=== PATIENT | male | born 1980 | race Caucasian/White ===

== ENCOUNTER 2022-10-01 23:12 | Inpatient (IN) ==
[2022-10-01 23:27] VITALS: BMI 28.2
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
[2022-10-01] MEDS ORDERED: GEODON INJ IM ONE ×2 (23:45→23:47)
[2022-10-01] MEDS ORDERED: NS 1,000 ML IV 1,000 ML IV ONE (23:46)
[2022-10-02] MEDS ORDERED: PHENOBARBITAL SODIUM INJ 65 MG VIAL IM PRN (00:01)
[2022-10-02] MEDS ORDERED: ATIVAN INJ 2 MG VIAL IVP ONE (00:33)
[2022-10-02] MEDS ORDERED: ATIVAN INJ 2 MG VIAL ONE (00:33)
[2022-10-02] MEDS ORDERED: ZOFRAN INJ 4 MG VIAL ONE (00:33)
[2022-10-02] MEDS ORDERED: ZOFRAN INJ 4 MG VIAL IVP ONE (00:33)
[2022-10-02 01:08] LABS: BASOPHILS % (AUTO) 0.3 % (0.2-1.0); HEMATOCRIT 38.1 % (42.0-54.0); HEMOGLOBIN 13.4 g/dL (13.5-18.0); LYMPHOCYTES # (AUTO) 0.9 X10^3/uL (1.3-2.9); LYMPHOCYTES % (AUTO) 6.5 % (21.0-51.0); MEAN CORPUSCULAR HEMOGLOBIN 28.7 pg (27.0-34.0); MEAN CORPUSCULAR HGB CONC 35.1 g/dL (33.0-35.0); MEAN CORPUSCULAR VOLUME 81.8 fL (80.0-100.0); MEAN PLATELET VOLUME 7.4 fL (7.4-11.0); MONOCYTES # (AUTO) 0.9 x10^3/uL (0.3-0.8); MONOCYTES % (AUTO) 6.2 % (0.0-13.0); NEUTROPHILS # (AUTO) 12.3 x10^3/uL (2.2-4.8); PLATELET COUNT 335 X10^3/uL (150.0-450.0); RED BLOOD COUNT 4.66 X10^6/uL (4.7-6.0); RED CELL DISTRIBUTION WIDTH 14.1 % (11.6-16.5); WHITE BLOOD COUNT 14.1 X10^3/uL (3.6-10.0)
[2022-10-02 01:16] LABS: ALANINE AMINOTRANSFERASE 42 Units/L (12-78); ALKALINE PHOSPHATASE 119 Units/L (46-116); ASPARTATE AMINO TRANSFERASE 20 Units/L (15-37); BLOOD UREA NITROGEN 15 mg/dL (7-18); CARBON DIOXIDE 22.1 mmol/L (21-32); CHLORIDE 103 mmol/L (98-107); COR NA(FOR HYPERGLY) 142 mmol/L (136-145); CREATININE 0.82 mg/dL (0.70-1.30); GLUCOSE 149 mg/dL (65-99); LIPASE 49 Units/L (73-393); POTASSIUM 3.2 mmol/L (3.5-5.1); SODIUM 141 mmol/L (136-145); TOTAL PROTEIN 7.3 g/dL (6.4-8.2); eGFR NON BLACK RACES > 60 (>60)
--- NOTE | 2022-10-02 01:55 | CT ---
History: AMS, NAUSEA, VOMITTING TBI 2020.brExam :BRAIN W/O CONTechnique: Thin section axial ct images of the brain were obtained from the foramen magnum to the vertex without contrast. Sagittal and coronal reconstructions were also performed.Comparison: NoneFindings:The ventricles are within normal limits in size. No midline shift, mass effect or extra-axial fluid collections. No evidence of acute hemorrhage or acute macroinfarction.The visualized paranasal sinuses and mastoids are unremarkable. The calvarium is intact.Impression:Normal noncontrast CT of the brain; no acute intracranial pathologyElectronically signed by: Dami Steven (Oct 02, 2022 01:53:50)
--- NOTE | 2022-10-02 02:09 | CT ---
HISTORYAMS, NAUSEA, VOMITTINGSTUDYABDOMEN/PELVIS W/O CONCOMPARISONNoneTECHNIQUEMultiple axial images of the abdomen and pelvis were obtained from the lung bases to the pubic symphysis without the administration of IV contrast. Dose reduction techniques including Automated Exposure Control (AEC) and adjustment of mA and kV were utilized.FINDINGSThe visualized portions of the lung bases are unremarkable . The liver, spleen, pancreas, kidneys, and adrenal glands are unremarkable in their CT appearance. The gallbladder is unremarkable in its CT appearance . No significant mesenteric lymphadenopathy or stranding can be observed. No free fluid or free air is seen within the abdomen. Normal appendix right lower quadrant. No bowel wall thickening or bowel dilatation is present. The colon is unremarkable. Specifically, there is no diverticulosis noted within the sigmoid colon. The urinary bladder is grossly unremarkable. The bony structures are grossly intact. There is streak artifact from sideplate and screw fixation involving the left acetabulum and hemipelvis.IMPRESSIONNo acute abdominal or pelvic pathologyElectronically signed by: Dami Steven (Oct 02, 2022 02:07:48)
[2022-10-02] MEDS ORDERED: COMPAZINE INJ IVP ONE (02:20)
[2022-10-02] MEDS ORDERED: BENADRYL INJ 50 MG VIAL IVP ONE (02:20)
[2022-10-02] MEDS ORDERED: BENADRYL INJ 50 MG VIAL ONE (02:22)
[2022-10-02] MEDS ORDERED: COMPAZINE INJ ONE (02:22)
[2022-10-02] MEDS ORDERED: NS 1,000 ML IV 1,000 ML ONE ×2 (05:00)
[2022-10-02] MEDS ORDERED: NS 1,000 ML IV 1,000 ML IV ONE (05:07)
[2022-10-02] MEDS ORDERED: ATIVAN 20 MG/10 ML VIAL IVP PRN (05:29)
[2022-10-02] MEDS ORDERED: CONSULT PHARMACY - POTASSIUM & MAGNESIUM XX SCH (05:29)
[2022-10-02] MEDS ORDERED: D5 1/2 NS 1,000 ML 1,000 ML IV SCH (05:29)
[2022-10-02] MEDS ORDERED: K-DUR TAB 20 MEQ PO SCH (06:00)
[2022-10-02] MEDS ORDERED: APRESOLINE INJ 20 MG VIAL IVP PRN (07:37)
[2022-10-02] MEDS: ATIVAN INJ 2 MG VIAL IVP PRN (08:00)
--- NOTE | 2022-10-02 08:44 | RAD ---
HISTORYAMS, NAUSEA, VOMITTINGSTUDYCHEST, 1 VIEWCOMPARISONNone availableFINDINGSThe trachea is midline. The cardiac silhouette is mildly enlarged. The lungs are clear without focal infiltrate or effusion. The bony thorax is unremarkable.IMPRESSIONNo acute cardiopulmonary findings. Mildly enlarged cardiac silhouette.Electronically signed by: LUC MONTILLA III (Oct 02, 2022 08:43:40)
[2022-10-02] MEDS ORDERED: KAOPECTATE (NEW FORMULA) PO PRN (08:49)
[2022-10-02] MEDS ORDERED: LIBRIUM PO PRN (09:00)
[2022-10-02] MEDS ORDERED: THIAMINE HCL INJ IM SCH (09:00)
[2022-10-02] MEDS ORDERED: MILK OF MAGNESIA PO PRN (09:00)
[2022-10-02] MEDS ORDERED: MAALOX or MYLANTA PO PRN (09:00)
[2022-10-02] MEDS ORDERED: PHENOBARBITAL TAB 30 MG (32.4MG) PO SCH (09:00)
[2022-10-02] MEDS ORDERED: K-RIDER 10 MEQ/NS 100 ML 10 MEQ/100 ML BAG IV ONE (09:59)
[2022-10-02] MEDS: [UNRECOGNIZED DRUG - OTHER] IV SCH ×8 (10:14→22:16)
[2022-10-02] MEDS: PROTONIX INJ 40 MG VIAL IVP SCH (10:14)
[2022-10-02] MEDS: NS IV SCH ×8 (10:14→22:16)
[2022-10-02] MEDS: MAGNESIUM SULFATE IV SCH ×8 (10:14→22:16)
[2022-10-02] MEDS: ZOFRAN INJ 4 MG VIAL IVP PRN ×2 (10:23→16:00)
[2022-10-02] MEDS: MORPHINE SULFATE INJ 2 MG INJ IVP PRN ×2 (12:23→18:27)
[2022-10-02] MEDS: APRESOLINE INJ 20 MG VIAL IVP PRN ×2 (13:17→17:26)
[2022-10-02] MEDS ORDERED: MAGNESIUM SULFATE 1 GRAM/100 mL PREMIX 1 G/100 ML BAG IV SCH (14:00)
[2022-10-02 14:18] LABS: BILIRUBIN,URINE NEGATIVE (NEGATIVE); BLOOD/HEMOGLOBIN,URINE 2+ (NEGATIVE); GLUCOSE, URINE NEGATIVE (NEGATIVE); KETONES,URINE 1+ (NEGATIVE); LEUKOCYTE ESTERASE ,URINE NEGATIVE (NEGATIVE); NITRITES,URINE NEGATIVE (NEGATIVE); PROTEIN,URINE NEGATIVE (NEGATIVE); UROBILINOGEN,URINE NORMAL (NORMAL)
[2022-10-02 14:27] LABS: APPEARANCE,URINE CLEAR (CLEAR); BACTERIA,URINE NEGATIVE /HPF (NEGATIVE); COLOR,URINE STRAW (YELLOW); SQUAMOUS EPITHELIAL CELL,UR FEW /HPF (NEGATIVE)
[2022-10-02] MEDS ORDERED: NS 250 ML IV 0 ML IV ONE (14:49)
[2022-10-02] MEDS ORDERED: K-DUR TAB 20 MEQ PO ONE ×3 (15:01→19:30)
[2022-10-02] MEDS ORDERED: CATAPRES TAB 0.1 MG PO SCH ×2 (18:00→21:00)
[2022-10-02] MEDS ORDERED: AMBIEN PO SCH (21:00)
--- NOTE | 2022-10-02 22:08 | RAD ---
HISTORYAMS, COUGHSTUDYCHEST, 1 VIEWCOMPARISONChest one view from 10/02/2022.FINDINGSSupport devices: None.Heart/mediastinum: No significant abnormality.Lungs: No significant pulmonary abnormality. No significant pleural effusion. No pneumothorax.Additional findings: None.IMPRESSIONNo acute cardiopulmonary findings .Electronically signed by: Salazar Cheek (Oct 02, 2022 22:06:37)
[2022-10-03] MEDS: APRESOLINE INJ 20 MG VIAL IVP PRN ×3 (00:43→09:44)
[2022-10-03] MEDS: NS IV SCH ×8 (04:50→13:10)
[2022-10-03] MEDS: [UNRECOGNIZED DRUG - OTHER] IV SCH ×8 (04:50→13:10)
[2022-10-03] MEDS: MAGNESIUM SULFATE IV SCH ×8 (04:50→13:10)
[2022-10-03 05:18] LABS: BASOPHILS # (AUTO) 0.1 X10^3/uL (0.0-0.1); BASOPHILS % (AUTO) 0.6 % (0.2-1.0); EOSINOPHILS % (AUTO) 0.2 % (0.9-2.9); HEMATOCRIT 37.5 % (42.0-54.0); LYMPHOCYTES # (AUTO) 2.3 X10^3/uL (1.3-2.9); LYMPHOCYTES % (AUTO) 16.8 % (21.0-51.0); MEAN CORPUSCULAR HEMOGLOBIN 28.5 pg (27.0-34.0); MEAN CORPUSCULAR HGB CONC 34.5 g/dL (33.0-35.0); MEAN CORPUSCULAR VOLUME 82.5 fL (80.0-100.0); MEAN PLATELET VOLUME 7.3 fL (7.4-11.0); MONOCYTES # (AUTO) 1.3 x10^3/uL (0.3-0.8); MONOCYTES % (AUTO) 9.4 % (0.0-13.0); NEUTROPHILS # (AUTO) 10.2 x10^3/uL (2.2-4.8); PLATELET COUNT 330 X10^3/uL (150.0-450.0); RED BLOOD COUNT 4.55 X10^6/uL (4.7-6.0); RED CELL DISTRIBUTION WIDTH 14.1 % (11.6-16.5); WHITE BLOOD COUNT 13.9 X10^3/uL (3.6-10.0)
[2022-10-03 05:44] LABS: ALANINE AMINOTRANSFERASE 35 Units/L (12-78); ALBUMIN 3.8 g/dL (3.4-5.0); ALKALINE PHOSPHATASE 105 Units/L (46-116); ASPARTATE AMINO TRANSFERASE 16 Units/L (15-37); BLOOD UREA NITROGEN 6 mg/dL (7-18); CALCIUM 8.6 mg/dL (8.5-10.1); CARBON DIOXIDE 21.1 mmol/L (21-32); CHLORIDE 102 mmol/L (98-107); CREATININE 0.74 mg/dL (0.70-1.30); GLUCOSE 104 mg/dL (65-99); POTASSIUM 3.2 mmol/L (3.5-5.1); SODIUM 138 mmol/L (136-145); TOTAL PROTEIN 6.8 g/dL (6.4-8.2); eGFR NON BLACK RACES > 60 (>60)
[2022-10-03] MEDS: MORPHINE SULFATE INJ 2 MG INJ IVP PRN ×3 (05:55→14:30)
--- NOTE | 2022-10-03 06:12 | RAD ---
HISTORYCOUGHSTUDYCHEST, 1 [id number]/2023.TECHNIQUEPA or AP view of the chestFINDINGSThe cardiac and mediastinal contours are within normal limits. The lungs are clear without focal consolidation or segmental collapse. No pleural effusion or pneumothorax.IMPRESSIONNo acute pulmonary process.Electronically signed by: Dontrell Vila (Oct 03, 2022 06:11:53)
[2022-10-03] MEDS: ATIVAN INJ 2 MG VIAL IVP PRN (07:00)
[2022-10-03] MEDS ORDERED: CONSULT PHARMACY - POTASSIUM & MAGNESIUM XX SCH ×2 (07:00)
[2022-10-03] MEDS ORDERED: K-DUR TAB 20 MEQ PO SCH (07:00)
--- NOTE | 2022-10-03 08:06 | DR.H&P ---
H&P History & Physical for Day of: H&P Date: 10/02/22 Allergies Allergies Allergy/AdvReac Type Severity Reaction Status Date / Time bee venom protein (honey bee) Allergy Severe Unverified 10/02/22 13:29 Penicillins Allergy Unknown Verified 08/30/22 16:19 History of Present Illness History of Present Illness: Pt is a 42 year old male presenting with confusion and being non-verbal for the past day. Mother states that he had been vomiting for the past 2-3 days and has not been taking any of his medications. Pt is on a lot of medications for his pain and mood. He had a change in his personality, not talking, acting agitated. Denies fever, cough, shortness of breath. Labs/imaging: Wbc 14.1, Hgb 13.4, Plt 335, Na 141, K 3.2, Creatinine 0.82, Glucose 149, CT brain was obtained that was negative for acute intracranial abnormalities. CXR no acute cardiopulmonary findings. CT abdomen and pelvis also negative for acute findings. Will get UDS. On exam patient appears to be having withdrawal symptoms. Will start on detox protocol and consult pharmacy that will include electrolyte replacement. Start on IV hydralazine prn for hypertension. Continue to closely monitor and follow up labs. Past Medical History Past Medical History: Anxiety, Depression and Hypertension Past Surgical History Surgical History: Ortho Surgery Family History Family Medical History: Diabetes Mellitus, CT, Coronary Artery Disease and Hypertension Social History Does patient currently use any type of tobacco product: Yes Have you used tobacco products in the last 12 months: Yes Type of Tobacco Use: VAPE Does any household member use tobacco: Yes Alcohol Use: None Drug Use: None Medications Home Medications: Home Medications Medication Instructions Recorded Confirmed Type buprenorphine HCl 8 mg sublingual 3 tab sublingual QDAY PRN 10/01/22 10/01/22 History tablet cariprazine 1.5 mg capsule 1 cap PO QDAY 10/01/22 10/01/22 History (Vraylar) clonidine HCl 0.1 mg tablet 1 tab PO QPM 10/01/22 10/01/22 History duloxetine 60 mg capsule,delayed 1 cap PO QDAY 10/01/22 10/01/22 History release gabapentin 800 mg tablet 1 tab PO QID 10/01/22 10/01/22 History lorazepam 1 mg tablet 1 mg PO TID PRN anxiety 10/01/22 10/01/22 History ondansetron HCl 8 mg tablet 1 tab PO BID PRN 10/01/22 10/01/22 History tapentadol 150 mg tablet,extended 1 tab PO BID 10/01/22 10/01/22 History release,12 hr (Nucynta ER) temazepam 15 mg capsule 1 cap PO QPM PRN 10/01/22 10/01/22 History Labs Result Diagrams: 10/03/22 04:41 10/03/22 04:41 Labs: Laboratory WBC 14.1 X10^3/uL (3.6-10.0) H 10/02/22 00:50 RBC 4.66 X10^6/uL (4.7-6.0) L 10/02/22 00:50 Hgb 13.4 g/dL (13.5-18.0) L 10/02/22 00:50 Hct 38.1 % (42.0-54.0) L 10/02/22 00:50 MCV 81.8 fL (80.0-100.0) 10/02/22 00:50 MCH 28.7 pg (27.0-34.0) 10/02/22 00:50 MCHC 35.1 g/dL (33.0-35.0) H 10/02/22 00:50 RDW 14.1 % (11.6-16.5) 10/02/22 00:50 Plt Count 335 X10^3/uL (150.0-450.0) 10/02/22 00:50 MPV 7.4 fL (7.4-11.0) 10/02/22 00:50 Neut % (Auto) 87.0 % (42.0-75.0) H 10/02/22 00:50 Lymph % (Auto) 6.5 % (21.0-51.0) L 10/02/22 00:50 [place] % (Auto) 6.2 % (0.0-13.0) 10/02/22 00:50 Eos % (Auto) 0.0 % (0.9-2.9) L 10/02/22 00:50 Baso % (Auto) 0.3 % (0.2-1.0) 10/02/22 00:50 Neut # (Auto) 12.3 x10^3/uL (2.2-4.8) H 10/02/22 00:50 Lymph # (Auto) 0.9 X10^3/uL (1.3-2.9) L 10/02/22 00:50 [place] # (Auto) 0.9 x10^3/uL (0.3-0.8) H 10/02/22 00:50 Eos # (Auto) 0.0 x10^3/uL (0.0-0.2) 10/02/22 00:50 Baso # (Auto) 0.0 X10^3/uL (0.0-0.1) 10/02/22 00:50 Absolute Nucleated RBC 0.1 /100WBC 10/02/22 00:50 Sodium 141 mmol/L (136-145) 10/02/22 00:50 Corrected Sodium 142 mmol/L (136-145) 10/02/22 00:50 Potassium 3.2 mmol/L (3.5-5.1) L 10/02/22 00:50 Chloride 103 mmol/L (98-107) 10/02/22 00:50 Carbon Dioxide 22.1 mmol/L (21-32) 10/02/22 00:50 BUN 15 mg/dL (7-18) 10/02/22 00:50 Creatinine 0.82 mg/dL (0.70-1.30) 10/02/22 00:50 Est GFR (MDRD) Af Amer > 60 (>60) 10/02/22 00:50 Est GFR (MDRD) Non-Af > 60 (>60) 10/02/22 00:50 Glucose 149 mg/dL (65-99) H 10/02/22 00:50 Calcium 9.0 mg/dL (8.5-10.1) 10/02/22 00:50 Corrected Calcium TNP 10/02/22 00:50 Magnesium 1.7 mg/dL (2.0-2.9) L 10/02/22 00:50 Total Bilirubin 0.40 mg/dL (0.2-1.0) 10/02/22 00:50 AST 20 Units/L (15-37) 10/02/22 00:50 ALT 42 Units/L (12-78) 10/02/22 00:50 Alkaline Phosphatase 119 Units/L (46-116) H 10/02/22 00:50 Total Protein 7.3 g/dL (6.4-8.2) 10/02/22 00:50 Albumin 4.0 g/dL (3.4-5.0) 10/02/22 00:50 Globulin 3.3 g/dL (2.5-4.5) 10/02/22 00:50 Albumin/Globulin Ratio 1.2 Ratio (1.1-2.1) 10/02/22 00:50 Lipase 49 Units/L (73-393) L 10/02/22 00:50 Review of Systems Constitutional: Sweats and Other (altered mental status) Eyes: No Symptoms Reported ENT: No Symptoms Reported Respiratory: No Symptoms Reported Cardiovascular: No Symptoms Reported Gastrointestinal: No Symptoms Reported Genitourinary: No Symptoms Reported Musculoskeletal: No Symptoms Reported Skin: No Symptoms Reported Neurological: Change in Speech (not speaking) and Confusion Physical Exam Vital Signs: Vital Signs Temperature 98.7 F Pulse Rate 95 Pulse Rate 78 Pulse Rate 73 Pulse Rate 76 Respiratory Rate 19 Respiratory Rate 24 Respiratory Rate 23 Respiratory Rate 19 Blood Pressure [Right Arm] 163/94 Blood Pressure 132/84 Blood Pressure 132/71 Blood Pressure 148/86 Blood Pressure 177/104 Blood Pressure 163/109 Blood Pressure 179/111 O2 Sat by Pulse Oximetry 100 O2 Sat by Pulse Oximetry 98 O2 Sat by Pulse Oximetry 100 O2 Sat by Pulse Oximetry 99 Oriented: Not Oriented Eyes: Normal Ear: Normal Nose: Normal Throat: Normal Respiratory: Clear Throughout Cardiovascular: Normal : Normal Auscultation: Bowel Sounds: Normal Palpation: Normal Tenderness: Normal Skin: Normal Musculoskeletal: Normal Psychiatric: Normal Affect: Flat Assessment/Plan (1) Drug withdrawal delirium: Narrative Support Text: Pharmacy consult Detox protocol. Status: Acute (2) Altered mental status: Status: Acute (3) Vomiting: Status: Acute Review H&P Reviewed: Yes Patient was examined?: Yes
[2022-10-03] MEDS: PROTONIX INJ 40 MG VIAL IVP SCH (09:38)
[2022-10-03] MEDS: ZOFRAN INJ 4 MG VIAL IVP PRN (09:51)
[2022-10-03 12:46] VITALS: PULSE 96; TEMP 98.2; O2SAT 100
[2022-10-03] MEDS ORDERED: TYLENOL 325 MG TAB PO PRN (13:16)
--- NOTE | 2022-10-03 13:29 | W.DIS.FURT ---
Summary of Discharge Discharge Summary of Date Date of Exam: 10/03/22 Admission Date Date of Admission: 10/01/22 Admission Diagnosis Patient Problems (Updated 10/03/22 @ 07:59 by Aung Pino) Altered mental status (Acute) R41.82 Vomiting (Acute) R11.10 Hospital Course: Pt is a 42 year old male admitted for opioid withdrawal and altered mental status. Pt reports that he was feeling more depressed and had stopped taking his medications for the past 3 days that precipated event and confusion. His hospital/treatment course included detox protocol and pharmacy was consulted. Electrolyte repleted. Pt responded well to treatment. Symptoms resolved and pt instructed to take home medications as prescribed. He was discharged in stable condition. Instructed to follow up with pcp in 1 week. Vital Signs: Vital Signs (72 hours) 10/01/22 23:12 10/02/22 03:12 10/02/22 04:42 Temperature 98.2 F Pulse Rate 90 Respiratory Rate 20 Blood Pressure 167/95 Blood Pressure [Right Arm] 163/94 O2 Sat by Pulse Oximetry 97 Oxygen Delivery Method Room Air Room Air 10/02/22 06:03 10/02/22 07:00 10/02/22 08:00 Temperature 98.7 F Pulse Rate 76 73 78 Respiratory Rate 19 23 24 Blood Pressure 179/111 163/109 177/104 Blood Pressure [Right Arm] O2 Sat by Pulse Oximetry 99 100 98 Oxygen Delivery Method Room Air Room Air 10/02/22 08:20 10/02/22 08:49 10/02/22 09:00 Temperature Pulse Rate 95 H Respiratory Rate 19 Blood Pressure 148/86 132/71 132/84 Blood Pressure [Right Arm] O2 Sat by Pulse Oximetry 100 Oxygen Delivery Method Room Air 10/02/22 10:00 10/02/22 07:00 10/02/22 12:23 Temperature Pulse Rate 93 H Respiratory Rate 19 20 Blood Pressure 175/97 Blood Pressure [Right Arm] O2 Sat by Pulse Oximetry 100 Oxygen Delivery Method Room Air Room Air 10/02/22 11:00 10/02/22 12:00 10/02/22 13:00 Temperature 97.6 F Pulse Rate 101 H 105 H 103 H Respiratory Rate 24 24 16 Blood Pressure 159/101 157/105 162/103 Blood Pressure [Right Arm] O2 Sat by Pulse Oximetry 96 99 99 Oxygen Delivery Method Room Air Room Air Room Air 10/02/22 12:53 10/02/22 14:00 10/02/22 15:00 Temperature Pulse Rate 101 H 95 H Respiratory Rate 20 17 21 Blood Pressure 142/97 154/98 Blood Pressure [Right Arm] O2 Sat by Pulse Oximetry 100 100 Oxygen Delivery Method Room Air Room Air 10/02/22 17:00 10/02/22 17:57 10/02/22 18:00 Temperature 98.1 F Pulse Rate 96 H 108 H Respiratory Rate 23 20 Blood Pressure 156/100 145/79 156/98 Blood Pressure [Right Arm] O2 Sat by Pulse Oximetry 100 100 Oxygen Delivery Method Room Air Room Air 10/02/22 18:27 10/02/22 19:00 10/02/22 19:00 Temperature Pulse Rate 108 H Respiratory Rate 23 21 Blood Pressure 150/96 Blood Pressure [Right Arm] O2 Sat by Pulse Oximetry 98 Oxygen Delivery Method Room Air Room Air 10/02/22 18:57 10/02/22 20:00 10/02/22 21:00 Temperature 98.3 F Pulse Rate 98 H 88 Respiratory Rate 23 19 29 H Blood Pressure 170/92 148/91 Blood Pressure [Right Arm] O2 Sat by Pulse Oximetry 96 98 Oxygen Delivery Method Room Air Room Air 10/02/22 21:50 10/02/22 23:00 10/03/22 00:00 Temperature 98.4 F Pulse Rate 81 86 79 Respiratory Rate 18 17 18 Blood Pressure 126/82 152/88 166/93 Blood Pressure [Right Arm] O2 Sat by Pulse Oximetry 97 95 99 Oxygen Delivery Method Room Air Room Air Room Air 10/03/22 00:20 10/03/22 01:00 10/03/22 02:00 Temperature 98.2 F Pulse Rate 81 109 H Respiratory Rate 14 21 Blood Pressure 146/89 153/81 149/93 Blood Pressure [Right Arm] O2 Sat by Pulse Oximetry 100 98 Oxygen Delivery Method Room Air Room Air 10/03/22 03:00 10/03/22 04:00 10/03/22 05:00 Temperature 97.8 F Pulse Rate 85 101 H 67 Respiratory Rate 11 L 16 23 Blood Pressure 153/95 137/84 146/92 Blood Pressure [Right Arm] O2 Sat by Pulse Oximetry 96 100 97 Oxygen Delivery Method Room Air Room Air Room Air 10/03/22 05:15 10/03/22 04:44 10/03/22 05:55 Temperature Pulse Rate Respiratory Rate 27 H Blood Pressure 172/95 164/104 Blood Pressure [Right Arm] O2 Sat by Pulse Oximetry Oxygen Delivery Method 10/03/22 06:00 10/03/22 06:25 10/03/22 07:00 Temperature Pulse Rate 64 99 H Respiratory Rate 12 24 20 Blood Pressure 144/80 158/102 Blood Pressure [Right Arm] O2 Sat by Pulse Oximetry 96 97 Oxygen Delivery Method Room Air Room Air 10/03/22 08:00 10/03/22 07:00 10/03/22 09:00 Temperature 98.0 F Pulse Rate 97 H Respiratory Rate 23 Blood Pressure 151/99 141/95 Blood Pressure [Right Arm] O2 Sat by Pulse Oximetry 97 Oxygen Delivery Method Room Air Room Air 10/03/22 10:00 10/03/22 11:00 10/03/22 12:00 Temperature 98.2 F Pulse Rate 96 H Respiratory Rate 20 Blood Pressure 132/94 151/86 140/92 Blood Pressure [Right Arm] O2 Sat by Pulse Oximetry 100 Oxygen Delivery Method Room Air Labs: Laboratory Last Values WBC 13.9 X10^3/uL (3.6-10.0) H 10/03/22 04:41 RBC 4.55 X10^6/uL (4.7-6.0) L 10/03/22 04:41 Hgb 13.0 g/dL (13.5-18.0) L 10/03/22 04:41 Hct 37.5 % (42.0-54.0) L 10/03/22 04:41 MCV 82.5 fL (80.0-100.0) 10/03/22 04:41 MCH 28.5 pg (27.0-34.0) 10/03/22 04:41 MCHC 34.5 g/dL (33.0-35.0) 10/03/22 04:41 RDW 14.1 % (11.6-16.5) 10/03/22 04:41 Plt Count 330 X10^3/uL (150.0-450.0) 10/03/22 04:41 MPV 7.3 fL (7.4-11.0) L 10/03/22 04:41 Neut % (Auto) 73.0 % (42.0-75.0) 10/03/22 04:41 Lymph % (Auto) 16.8 % (21.0-51.0) L 10/03/22 04:41 [place] % (Auto) 9.4 % (0.0-13.0) 10/03/22 04:41 Eos % (Auto) 0.2 % (0.9-2.9) L 10/03/22 04:41 Baso % (Auto) 0.6 % (0.2-1.0) 10/03/22 04:41 Neut # (Auto) 10.2 x10^3/uL (2.2-4.8) H 10/03/22 04:41 Lymph # (Auto) 2.3 X10^3/uL (1.3-2.9) 10/03/22 04:41 [place] # (Auto) 1.3 x10^3/uL (0.3-0.8) H 10/03/22 04:41 Eos # (Auto) 0.0 x10^3/uL (0.0-0.2) 10/03/22 04:41 Baso # (Auto) 0.1 X10^3/uL (0.0-0.1) 10/03/22 04:41 Absolute Nucleated RBC 0.0 /100WBC 10/03/22 04:41 Sodium 138 mmol/L (136-145) 10/03/22 04:41 Corrected Sodium TNP 10/03/22 04:41 Potassium 3.2 mmol/L (3.5-5.1) L 10/03/22 04:41 Chloride 102 mmol/L (98-107) 10/03/22 04:41 Carbon Dioxide 21.1 mmol/L (21-32) 10/03/22 04:41 BUN 6 mg/dL (7-18) L 10/03/22 04:41 Creatinine 0.74 mg/dL (0.70-1.30) 10/03/22 04:41 Est GFR (MDRD) Af Amer > 60 (>60) 10/03/22 04:41 Est GFR (MDRD) Non-Af > 60 (>60) 10/03/22 04:41 Glucose 104 mg/dL (65-99) H 10/03/22 04:41 Calcium 8.6 mg/dL (8.5-10.1) 10/03/22 04:41 Corrected Calcium TNP 10/03/22 04:41 Magnesium 2.3 mg/dL (2.0-2.9) 10/03/22 04:41 Total Bilirubin 0.40 mg/dL (0.2-1.0) 10/03/22 04:41 AST 16 Units/L (15-37) 10/03/22 04:41 ALT 35 Units/L (12-78) 10/03/22 04:41 Alkaline Phosphatase 105 Units/L (46-116) 10/03/22 04:41 Total Protein 6.8 g/dL (6.4-8.2) 10/03/22 04:41 Albumin 3.8 g/dL (3.4-5.0) 10/03/22 04:41 Globulin 3.0 g/dL (2.5-4.5) 10/03/22 04:41 Albumin/Globulin Ratio 1.3 Ratio (1.1-2.1) 10/03/22 04:41 Lipase 49 Units/L (73-393) L 10/02/22 00:50 Specimen Type Random urine 10/02/22 13:45 Urine Color Straw (YELLOW) 10/02/22 13:45 Urine Appearance Clear (CLEAR) 10/02/22 13:45 Urine pH 6.0 (5.0 - 8.0) 10/02/22 13:45 Ur Specific [place] 1.015 (1.000-1.030) 10/02/22 13:45 Urine Protein Negative (NEGATIVE) 10/02/22 13:45 Urine Glucose (UA) Negative (NEGATIVE) 10/02/22 13:45 Urine Ketones 1+ (NEGATIVE) 10/02/22 13:45 Urine Blood 2+ (NEGATIVE) 10/02/22 13:45 Urine Nitrite Negative (NEGATIVE) 10/02/22 13:45 Urine Bilirubin Negative (NEGATIVE) 10/02/22 13:45 Urine Urobilinogen Normal (NORMAL) 10/02/22 13:45 Ur Leukocyte Esterase Negative (NEGATIVE) 10/02/22 13:45 Urine RBC 5-10 /HPF (0-3) A 10/02/22 13:45 Urine WBC 0-2 /HPF (0-5) 10/02/22 13:45 Ur Squamous Epith Cells Few /HPF (NEGATIVE) 10/02/22 13:45 Urine Bacteria Negative /HPF (NEGATIVE) 10/02/22 13:45 Urine Mucus Few /HPF (NEGATIVE) 10/02/22 13:45 Ur Culture Indicated? No/not indicated 10/02/22 13:45 Urine Opiates Screen Negative (NEG=<300) 10/02/22 13:45 Urine Methadone Screen Negative (NEG=<300) 10/02/22 13:45 Ur Barbiturates Screen Negative (NEG=<200) 10/02/22 13:45 Ur Phencyclidine Scrn Negative (NEG=<25) 10/02/22 13:45 Ur Amphetamines Screen Negative (NEG=<1000) 10/02/22 13:45 U Benzodiazepines Scrn Negative (NEG=<200) 10/02/22 13:45 Urine Cocaine Screen Negative (NEG=<300) 10/02/22 13:45 U Marijuana (THC) Screen Positive (NEG=<50) A 10/02/22 13:45 Reason For Visit: DELIRIUM TREMENS, AMS, NAUSEA, VOMITING Discharge Date Discharge Date: 10/03/22 Discharge Diagnosis All Active Problems (Updated 10/03/22 @ 07:59 by Aung Pino) Drug withdrawal delirium (Acute) Altered mental status (Acute) Vomiting (Acute) Major depressive disorder (Acute) Chronic left hip pain (Acute) Nausea (Acute) Hypertension (Acute) Insomnia (Acute) Muscle spasm (Acute) Mixed anxiety and depressive disorder (Acute) DDD (degenerative disc disease), lumbosacral (Acute) Plan of Treatment: Continue with present treatment and follow up plan. Pt is to keep follow up appointment as instructed and take medications as ordered. Discharge Medications Discharge Medications: bee venom protein (honey bee) Allergy (Severe, Unverified 10/02/22 13:29) Penicillins Allergy (Unknown, Verified 08/30/22 16:19) CONTINUE taking the following medications buprenorphine HCl 8 mg sublingual tablet 3 tab sublingual QDAY PRN 10/01/22 [History] cariprazine 1.5 mg capsule (Vraylar) 1 cap PO QDAY 10/01/22 [History] clonidine HCl 0.1 mg tablet 1 tab PO QPM 10/01/22 [History] duloxetine 60 mg capsule,delayed release 1 cap PO QDAY 10/01/22 [History] gabapentin 800 mg tablet 1 tab PO QID 10/01/22 [History] lorazepam 1 mg tablet 1 mg PO TID PRN anxiety 10/01/22 [History] ondansetron HCl 8 mg tablet 1 tab PO BID PRN 10/01/22 [History] tapentadol 150 mg tablet,extended release,12 hr (Nucynta ER) 1 tab PO BID 10/01/22 [History] temazepam 15 mg capsule 1 cap PO QPM PRN 10/01/22 [History] Discharge Plan Discharge Plan Hospital Course: Pt is a 42 year old male admitted for opioid withdrawal and altered mental status. Pt reports that he was feeling more depressed and had stopped taking his medications for the past 3 days that precipated event and confusion. His hospital/treatment course included detox protocol and pharmacy was consulted. Electrolyte repleted. Pt responded well to treatment. Symptoms resolved and pt instructed to take home medications as prescribed. He was discharged in stable condition. Instructed to follow up with pcp in 1 week. Patient Disposition: 01 HOME, SELF-CARE Condition: Stable Health Concerns: Post Hospitalization: new medications and changes needed to prevent readmission or further decline. Pt educated and given instructions on all concerns. Plan of Treatment: Continue with present treatment and follow up plan. Pt is to keep follow up appointment as instructed and take medications as ordered. Prescriptions: Continued clonidine HCl 0.1 mg tablet 1 tab PO QPM ondansetron HCl 8 mg tablet 1 tab PO BID PRN temazepam 15 mg capsule 1 cap PO QPM PRN gabapentin 800 mg tablet 1 tab PO QID lorazepam 1 mg tablet 1 mg PO TID PRN (Reason: anxiety) buprenorphine HCl 8 mg tablet, sublingual 3 tab sublingual QDAY PRN duloxetine 60 mg capsule,delayed release(DR/EC) 1 cap PO QDAY Nucynta ER 150 mg tablet extended release 12 hr 1 tab PO BID Vraylar 1.5 mg capsule 1 cap PO QDAY Follow ups/Referrals Follow ups/Referrals: [facility],None [Primary Care Provider] - 3 days Instructions Stand Alone Forms: Excuse From Work or School, Post Hospital Follow Up Care
[2022-10-03 15:08] VITALS: BP 141/90
[2022-10-03 15:25] VITALS: RESP 21
[2022-10-04] MEDS ORDERED: K-DUR TAB 20 MEQ PO ONE (19:30)
[2022-10-05] MEDS ORDERED: PHENOBARBITAL TAB 15 MG (16.2MG) PO SCH (09:00)
== END 2022-10-03 16:05 | disposition home or self-care (01) | DRG 948 ==
LOC: ER 23:12 → ICU 23:12
PROVIDERS: ADMIT Family Medicine; ATTEND Family Medicine
DX: F11.23 Opioid dependence with withdrawal; R11.2 Nausea with vomiting, unspecified; Z87.820 Personal history of traumatic brain injury; R41.82 Altered mental status, unspecified